=== PATIENT | male | born 1960 | race Caucasian/White ===

== ENCOUNTER 2019-09-21 15:43 | Outpatient (CLI) | payer OTHER ==
--- NOTE | 2019-09-21 16:07 | RAD ---
XR Ankle Lt 3 View STANDARD History: Pain in ankle Comparison: None. Findings: No acute fracture or malalignment. There is some ossification of interosseous membrane from prior injury. Mild narrowing of the posterior subtalar joint as well as the ankle joint. Mild medial soft tissue edema. Moderate plantar calcaneal spur. Impression: Chronic findings. No acute osseous abnormality.
== END 2019-09-21 15:44 | disposition home or self-care (01) ==
LOC: BICRAD 15:43
PROVIDERS: ATTEND Family Medicine
DX: M25.572 Pain in left ankle and joints of left foot (principal); R60.0 Localized edema; M77.32 Calcaneal spur, left foot; M19.072 Primary osteoarthritis, left ankle and foot